=== PATIENT | female | born 1990 | race Caucasian/White ===

== ENCOUNTER → 2021-06-11 | Day surgery (SDC) | payer OTHER ==
[~2021-06-11] VITALS: Ht 172.7 cm; Wt 140.6 kg
[~2021-06-11] MED LIST: BACTRIM DS TAB1 EACH PO; LEVOTHYROXINE PO; PERCOCET 5-3251 EACH PO
[2021-06-11 06:46] LABS: HCG (URINE) SCREEN NEGATIVE (NEGATIVE)
== END | disposition home or self-care (01) ==
LOC: FAS 06:18
PROVIDERS: Anesthesiology
DX: G56.02 Carpal tunnel syndrome, left upper limb (principal)
CPT/HCPCS: 84703; 93005; J1100; J1170; J1885; J2250; J2405; J2704; J3010; J7120